=== PATIENT | male | born 1965 | race Two or more races ===

== ENCOUNTER 2020-10-27 13:30 | Emergency (ER) | payer MEDICARE, MEDICAID ==
[~2020-10-27] VITALS: Ht 165.1 cm; Wt 86.2 kg
[~2020-10-27 13:30] MED LIST: ALL100T PO; ASPI-378 PO; ATO40T PO; BENA20TA14 PO; BUME2TAB5 PO; CALC667C5 PO; CLON0.3D4; DOCU100T15 PO; ERGO1CAP23 PO; HYDR-4833 PO; HYDR50TA15 PO; LEVO112T4 PO; METO25TA5 PO; SEVE800T8 PO; TIZA4CAP PO
[2020-10-27] MEDS ORDERED: cloNIDine HCL 0.1 MG TAB PO ONE (13:45)
[2020-10-27 14:33] VITALS: BP 146/93
== END 2020-10-27 14:43 | disposition home or self-care (01) ==
LOC: ER 13:30
DX: I12.0 Hypertensive chronic kidney disease with stage 5 chronic kidney disease or end stage renal disease (principal); N18.6 End stage renal disease